=== PATIENT | female | born 1940 | race Caucasian/White ===

== ENCOUNTER → 2017-06-05 | Outpatient (CLI) | payer OTHER ==
[~2017-06-05] MED LIST: FEXO3TAB PO; METH2.5 PO; METO25 PO; RIVA20 PO; [UNRECOGNIZED DRUG - CODE] PO
--- NOTE | 2017-06-09 10:51 | RSPPFT ---
DATE OF PROCEDURE: 06/05/17 COMMENTS: VOLUMES DYNAMIC: FVC and FEV1 normal. STATIC: FRC, RV and TLC normal. FLOWS: FEV1% and FEF 25-75 normal. DIFFUSION: Mildly reduced. FLOW VOLUME LOOP: Normal configuration. IMPRESSION: Essentially normal pulmonary functions with no significant obstruction or restriction and no increase in airways resistance. There is no improvement post-bronchodilator. Reduction in diffusion is mild.
== END ==
LOC: PHRSP 07:51
PROVIDERS: ATTEND Internal Medicine
DX: J44.9 Chronic obstructive pulmonary disease, unspecified (principal)
CPT/HCPCS: 94060; 94620; 94726; 94729